=== PATIENT | male | born 1960 | race Caucasian/White ===

== ENCOUNTER 2016-11-03 10:25 | Inpatient (IN) | payer OTHER ==
[2016-11-03] MEDS ORDERED: KETOROLAC 60 MG/2 ML VIAL IVP STA (10:56)
[2016-11-03] MEDS ORDERED: KETOROLAC 30 MG/ML VIAL ONE (11:02)
--- NOTE | 2016-11-03 11:54 | XRAY Preliminary Report ---
Exam: XR Ankle 3 View LT IMPRESSION: 1. Probable impacted and comminuted fracture involving the dorsal/anterior calcaneus. Question latera l talar fracture. 2. Subtalar and talonavicular dislocation. Abnormal widening lateral aspect of mortise. 3. Recommend CT to further characterize. [facility] SITE ID: [id number]
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
[2016-11-03] MEDS ORDERED: PROPOFOL 200 MG/20 ML VIAL IVP ONE ×2 (12:20→12:31)
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
[2016-11-03] MEDS ORDERED: PROPOFOL 200 MG/20 ML VIAL IVP STA (12:54)
[2016-11-03] MEDS ORDERED: ONDANSETRON 4 MG/2 ML VIAL IVP ONE (13:30)
[2016-11-03] MEDS ORDERED: SUCCINYLCHOLINE 200 MG/10 ML VIAL IVP ONE (13:30)
[2016-11-03] MEDS ORDERED: LIDOCAINE-MPF 2% 5 ML VIAL IM ONE (13:30)
[2016-11-03] MEDS ORDERED: fentaNYL 100 MCG/2 ML VIAL IVP ONE (13:30)
[2016-11-03] MEDS ORDERED: MIDAZOLAM 2 MG/2 ML VIAL IVP ONE (13:30)
[2016-11-03] MEDS ORDERED: DEXAMETHASONE 4 MG/ML VIAL IVP ONE (13:30)
[2016-11-03] MEDS ORDERED: LACTATED RINGERS 1,000 ML IV ONE ×2 (14:01→15:25)
[2016-11-03] MEDS ORDERED: ONDANSETRON 4 MG/2 ML VIAL IVP PRN (15:48)
[2016-11-03] MEDS ORDERED: MORPHINE 2 MG/ML SYRINGE IVP PRN (15:48)
[2016-11-03] MEDS ORDERED: ACETAMINOPHEN 325 MG TABLET PO PRN (15:48)
[2016-11-03] MEDS ORDERED: oxyCOD/ACETAMIN 5 MG/325 MG TABLET PO PRN (15:48)
[2016-11-03] MEDS ORDERED: SODIUM CHLORIDE FLUSH 0.9% 10 ML SYRINGE IVP PRN (15:48)
--- NOTE | 2016-11-03 15:55 | OPERATIVE REPORT ---
Operative Report - General Admit Date: 11/03/16 Procedure Date: 11/03/16 Planned Procedure: closed or open reduction of left subtalar dislocation Pre-Op Diagnosis: closed left foot lateral subtalar dislocation Post Op Diagnosis: same and comminuted fracture of anterior process of the calcaneus - Procedure Note Primary Surgeon: royce Anesthesia Provider: claritza Anesthesia Technique: General LMA Estimated Blood Loss (in cc): 50
--- NOTE | 2016-11-03 15:55 | XRAY Report ---
[facility]: 11/03/2016 Fluoroscopy time only, no images submitted for interpretation. Fluoroscopy time 0 minutes, 10 seconds. SONAMD
[2016-11-03] MEDS ORDERED: LACTATED RINGERS 1,000 ML IV SCH (16:00)
--- NOTE | 2016-11-03 16:33 | XRAY Preliminary Report ---
Exam: XR Foot 3 View LT IMPRESSION: External reduction with pinning of the hindfoot and midfoot with improvement in alignment . [facility] SITE ID: [id number]
--- NOTE | 2016-11-03 16:36 | XRAY Report ---
EXAM: LEFT FOOT RADIOGRAPHY EXAM DATE: 11/03/2016 04:18 PM. CLINICAL HISTORY: Postoperative from foot surgery. COMPARISON: Ankle x-ray today.. TECHNIQUE: 3 views. FINDINGS: Bones: There is a new metallic fixator wire traversing the region of the navicular and talus. There i s also a talus calcaneus surgical external fixator wire. The alignment of the hindfoot appears improv ed. Joints: As above. Soft Tissues: There is soft tissue swelling and a cast has been placed. IMPRESSION: External reduction with pinning of the hindfoot and midfoot with improvement in alignment . [facility] Referring Provider Line: [phone] SITE ID: [id number]
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
--- NOTE | 2016-11-03 18:06 | PROVIDER PROGRESS NOTE ---
Subjective - General Admit Date: 11/03/16 Procedure Date: 11/03/16 Post Op Days: 0 Procedure Performed: ORIF of left lateral subtalar fracture/disolocation - Review of Systems Wound/Incisions: positive: Drainage General: positive: No symptoms Musculoskeletal: positive: Foot pain, Joint swelling Objective - Patient Data Reviewed Vital Signs: Yes Vital Signs: Vital Signs x48h Pulse Ox 11/03/16 15:46 97 11/03/16 15:40 97 11/03/16 15:34 96 11/03/16 15:29 95 11/03/16 15:25 95 11/03/16 15:20 96 11/03/16 15:09 99 Weight: Weight 11/01/16 11/02/16 11/03/16 23:59 23:59 23:59 Weight (kg) 210 g - Imaging Results Radiology Imaging: positive: EMP read indepedently - Physical Exam Wound/Incisions: positive: Drainage General Appearance: positive: No acute distress Skin: positive: Warm, Dry Impression/Plan - Problem List Problem List: This patient is recovering well post open reduction/internal fixation of a very complex lateral subtalar fracture dislocation. The patient is insisting that he would like to go home tonight. He is not having severe pain, and not requiring meds. I have had a discussion with him about the gravity of his foot injury and the fact that "OPEN" reduction was required, and that multiple comminuted pieces of bone were taken from the lateral incision and represent the anterior process of the Calcaneus. I expect that he will have chronic foot pain and limp after this degree of injury. I would like to have a repeat CT scan to assess where the bone loss exists and to evaluate the degree of congruity obtained at reduction/pinning. The patient is aware of swelling risk, infection, compartment syndrome. Weight bearing will jeopardize the repair, the skin, and the bone alignment. He will be seen in Clinic on Tuesday morning. The outer lyndon wraps may be loosened, and crutches will be provided. He will be given oral Pain meds and narcotics.
--- NOTE | 2016-11-03 18:11 | Discharge Plan ---
Discharge Plan Disposition: Home, Self Care Condition: Stable Prescriptions: oxyCODONE/ACET 5/325 [Percocet 5 mg/325 mg] 1 tab PO Q4HR PRN #30 tablet PRN Reason: Pain Crutch [Crutches] 1 each MC ONCE #1 each Diet: Regular Activity Restrictions: non weight bear, ice, Shower Restrictions: Yes (keep left foot and ankle clean and dry) Driving Restrictions: Yes (no [id number]) Assistance Devices: Crutches Weight Bearing: No Weight Instruction Topics: Acetaminophen Oxycodone tablets, Crutches Non Weight Bearing, Crutches Up and Down Steps, Tips Foot Post Op, Crutches Sitting Standing Doors No Smoking: If you smoke, Please STOP! Call for help. Follow-up with: Yessi Gibson MD [Provider Admit Priv/Credential] -
[2016-11-03 19:18] VITALS: BP 139/71
[2016-11-03] MEDS ORDERED: ceFAZolin 2 GM/50 ML 50 ML IV SCH (22:00)
[2016-11-03] MEDS ORDERED: SODIUM CHLORIDE FLUSH 0.9% 10 ML SYRINGE IVP SCH (22:00)
== END 2016-11-03 19:00 | disposition home or self-care (01) | DRG 494 ==
LOC: ED 10:25 → SDS 12:40 → MS 15:00
PROVIDERS: ADMIT Orthopaedic Surgery; ATTEND Orthopaedic Surgery
PROC: 0SSG04Z Reposition Left Ankle Joint with Internal Fixation Device, Open Approach (ICD-10-PCS; principal; 2016-11-03 13:20)
DX: S92.022A Displaced fracture of anterior process of left calcaneus, initial encounter for closed fracture (principal); V18.0XXA Pedal cycle driver injured in noncollision transport accident in nontraffic accident, initial encounter; Y93.55 Activity, bike riding; Y92.009 Unspecified place in unspecified non-institutional (private) residence as the place of occurrence of the external cause
CPT/HCPCS: 94770; 96374; 99152; 99283; 99285